=== PATIENT | male | born 1980 | race Caucasian/White ===

== ENCOUNTER 2022-11-06 09:33 | Emergency (ER) | payer MEDICAID ==
[~2022-11-06] VITALS: Ht 177.8 cm; Wt 77.0 kg
[~2022-11-06 09:33] MED LIST: ATOR10TA PO; CARV3.12 PO; FURO40TA4 PO; LACT10SO3 PO; METR-159 PO; PANT40TA54 PO; SPIR25TA PO
[2022-11-06 09:35] VITALS: TEMP 98.7
[2022-11-06] MEDS ORDERED: LACT10SO88 PO (10:43)
[2022-11-06 10:46] VITALS: BP 93/60; PULSE 91; RESP 14; O2SAT 99
== END 2022-11-06 17:59 | disposition home or self-care (01) ==
LOC: ER 09:34 → EDBD 09:34 → ER 17:59
DX: Z00.00 Encounter for general adult medical examination without abnormal findings (principal); Z79.899 Other long term (current) drug therapy
CPT/HCPCS: 99281

== ENCOUNTER 2022-11-27 16:19 | Emergency (ER) | payer SELFPAY ==
[~2022-11-27] VITALS: Ht 177.8 cm; Wt 80.0 kg
[~2022-11-27 16:19] MED LIST changes: -FURO40TA4 PO; +LACT10SO88 PO; -METR-159 PO
[2022-11-27 16:20] VITALS: BP 105/65; PULSE 106; RESP 16; TEMP 97.7; O2SAT 99
== END 2022-11-27 18:13 | disposition left against medical advice (07) ==
LOC: ER 16:19
DX: Z76.0 Encounter for issue of repeat prescription (principal); Z53.21 Procedure and treatment not carried out due to patient leaving prior to being seen by health care provider
CPT/HCPCS: 99281

== ENCOUNTER 2024-12-15 13:23 | Inpatient (IN) | payer SELFPAY ==
[~2024-12-15] VITALS: Ht 180.3 cm; Wt 86.3 kg
[2024-12-15] VITALS (9 sets, daily range): BP systolic 112–127; BP diastolic 62–74; PULSE 90–102; RESP 13–17; TEMP 98.2–99.2; O2SAT 95–96
[~2024-12-15 13:23] MED LIST changes: +LACT-373 PO; +LACT-383 PO; -LACT10SO3 PO; -LACT10SO88 PO
[2024-12-15] MEDS: ondansetron 4mg rapidly disintigrating tab PO ONE (14:14)
[2024-12-15 14:19] LABS: MEAN PLATELET VOLUME 9.0 FL (7.4-10.4); RED CELL DISTRIBUTION WIDTH 23.5 % (11.5-14.5)
[2024-12-15 14:44] LABS: CREATININE 0.70 MG/DL (0.60-1.10); TOTAL CARBON DIOXIDE 25.6 MMOL/L (24-32); eCRCL 145 ML/MIN; eGFR > 90 ML/MIN
[2024-12-15 15:16] LABS: PLATELET ESTIMATE DECREASED
--- NOTE | 2024-12-15 16:29 | Physician Documentation ---
History of Present Illness General Chief Complaint: Bloody Emesis Stated Complaint: VOMITING BLOOD Time Seen by MD: 16:27 OK to notify your PCP?: No Primary Medical Doctor: NONE Source: patient, RN notes reviewed Mode of Arrival: Ambulatory Exam Limitations: no limitations History of Present Illness Initial Comments 44-year-old male, with a history of GI bleeding due to ulcers and heavy alcohol consumption, presents complaining of episodes of vomiting blood today, at 0400 and 1000. He also describes black diarrhea this morning. The patient notes that over the last 1-1.5 weeks he has generally he fell very ill, mostly with generalized weakness, fatigue, and nasal/chest congestion. He denies abdominal pain, shortness of breath, or fever. He denies known history of esophageal darius ices. Triage reports patient's last alcoholic drink was two days ago, however patient reports to me that he last drank a couple of weeks ago. Medication Reconciliation Allergies: Coded Allergies: No Known Allergies (Unverified , 11/27/22) Scheduled Atorvastatin Calcium (Lipitor), 1 TAB PO DAILY Carvedilol (Coreg), 2 TAB PO BID Lactulose (Lactulose), 30 ML PO Q12H Pantoprazole Sodium (Pantoprazole Sodium), 40 MG PO BKF Spironolactone (Aldactone), 4 TAB PO DAILY Discontinued Medications Lactulose (Lactulose), 15 ML PO DAILY Discontinued Reason: patient no longer taking Past Medical History Past Medical History: *GI/HEPATOBILIARY*, GI Bleed Alcohol Use: Heavy Review of Systems All Other Systems at this time: Reviewed and Negative ROS As stated above in the HPI, otherwise all systems are reviewed and negative. Physical Exam Physical Exam Vital Signs: RN Vital Signs have been reviewed: Yes, Temperature: 98.5, Source: Temporal, Heart Rate: 99, Respiratory Rate: 18, BP: 130/80, Pulse Oximetry: 96, Weight: 90.400 Oxygen Flow Rate: 0 Pulse Oximetry Reflects: adequate oxygenation Physical Exam VITALS: Reviewed and as above. GENERAL: Alert, no apparent distress. Chronically ill appearing. HEENT: Icteric sclera. Normocephalic, atraumatic, PERRL, EOMI, dry mucosa, no erythema RESPIRATORY: Lungs clear, normal breath sounds, no respiratory distress. CHEST: No accessory muscle use, no retractions CV: Regular rate, rhythm, no edema, no murmur, No: JVD GI: Soft, non-tender, bowels sounds present, no rebound, guarding, or rigidity MUSCULOSKELETAL No deformities, no edema SKIN: Warm and dry, no rash NEURO: Oriented x4, No motor or sensory deficit PSYCH: Normal mood and affect, no agitation Progress Progress Note 1656: Case discussed with Dr. Velasquez, GI, who agrees to consult. 1750: Patient had an episode of vomiting, which appears to contain blood. 1758: Hospitalist paged. Results/Orders Reviewed/noted all lab results: Yes Results/Orders Orders - FRIDA NETTLES MD Urinalysis, Cult If Indicated (12/15/24 13:35) Transfusion Informed Consent (12/15/24 16:44) Normal Saline 100ml... W/Octreotide Inj. (12/15/24 16:45) Transfusion Informed Consent (12/15/24 17:55) Page Hospitalist (12/15/24 17:58) Completed Orders - FRIDA NETTLES MD Cbc/Diff (12/15/24 13:35) Lipase (12/15/24 13:35) CMP (12/15/24 13:35) Plt Lvds Bm (12/15/24 16:44) Octreotide Inj. (Sandostatin Inj.) (12/15/24 16:45) Type And Screen (12/15/24 16:44) Lrpc - Active Bleeding (12/15/24 17:55) Ondansetron Inj. (Zofran 4mg/2ml Vial) (12/15/24 18:00) Pantoprazole 40mg Iv (Protonix 40mg Iv) (12/15/24 16:40) Pantoprazole 40mg/Ns 100ml Bag (Protonix (12/15/24 16:40) Pantoprazole 40mg Iv (Protonix 40mg Iv) (12/15/24 18:10) Vital Signs 12/15/24 12/15/24 12/15/24 12/15/24 13:33 16:22 18:10 18:27 Temp 98.5 99.2 98.4 Pulse 118 99 98 95 Resp 18 18 15 17 B/P (MAP) 123/79 130/80 (97) 113/62 121/74 Pulse Ox 97 96 O2 Flow Rate 0 12/15/24 12/15/24 12/15/24 18:49 19:25 19:34 Temp 99.1 99.1 Pulse 97 90 Resp 15 16 14 B/P (MAP) 113/65 113/65 Laboratory Tests Test 12/15/24 13:56 White Blood Count 3.2 L Red Blood Count 3.25 L Hemoglobin 9.9 L Hematocrit 29.7 L Mean Corpuscular Volume 91.2 Mean Corpuscular Hemoglobin 30.6 Mean Corpuscular Hemoglobin Concent 33.5 Red Cell Distribution Width 23.5 H Platelet Count 28 *L Mean Platelet Volume 9.0 Neutrophils (%) (Auto) 56.9 Lymphocytes (%) (Auto) 30.6 Monocytes (%) (Auto) 11.1 Eosinophils (%) (Auto) 0.2 Basophils (%) (Auto) 1.2 H Neutrophils # (Auto) 1.8 Lymphocytes # (Auto) 1.0 L Monocytes # (Auto) 0.4 Eosinophils # (Auto) 0.0 Basophils # (Auto) 0.0 CBC Comment Platelet Estimate Decreased Red Blood Cell Morphology Perf Poikilocytosis Few Basophilic Stippling Anisocytosis 3+ Microcytosis 1+ Prothrombin Time 20.4 H INR International Normalized Ratio 2.1 Activated Partial Thromboplast Time 36 H Coagulation Comments Sodium Level 139 Potassium Level 4.0 Chloride Level 104 Carbon Dioxide Level 25.6 Anion Gap 9 Blood Urea Nitrogen 12 Creatinine 0.70 Estimated GFR/1.73 m2 > 90 BUN/Creatinine Ratio 17.1 Glucose Level 111 H Calcium Level 7.4 L Total Bilirubin 5.7 H Aspartate Amino Transf (AST/SGOT) 85 H Alanine Aminotransferase (ALT/SGPT) 29 Alkaline Phosphatase 112 Total Protein 6.4 Albumin 2.7 L Globulin 3.7 Albumin/Globulin Ratio 0.7 L Lipase 25 Chemistry Comments Medical Decision Making Additional information obtaine: old records Findings Patient presented to the emergency room with GI bleed. Protonix and octreotide has been initiated. Noted anemia along with low platelets and both of these has been ordered and GI has been consulted. Differential Diagnosis Upper GI bleed, lower GI bleed, anemia, ulcer, variceal bleed Departure Time of Disposition: 17:58 Disposition: 09 ADMITTED INPATIENT Admitted to Inpatient Unit: yes, to hospitalist Impression: Primary Impression: Upper GI bleed Additional Impression: Thrombocytopenia Condition: Guarded Education Educated: Patient Educated regarding: diagnosis, treatment Critical Care Note Total Time (mins): 45 Critical Care Note The very real possibility of a deterioration of this patient's condition required the highest level of my preparedness for sudden, emergent intervention. I provided critical care services, which included medication orders, frequent reevaluations of the patient's condition and response to treatment, ordering and reviewing test results, and discussing the case with various consultants. Excludes time spent performing separately billable procedures. The critical care time associated with the care of the patient was 45 minutes not counting procedures Additional Comment Additional Comment The patient presented with a reported upper GI bleed patient has a history of varices and significant bleed in the past, the patient was hemodynamically stable the patient was given platelets as he is thrombocytopenic he was also tra nsfused 1 unit of PRBCs while I was caring for the patient, the case has been discussed with the GI doctor Dr. Salguero the patient was started on a Protonix drips as well as an octreotide drip. The the patient's prior hospitalizations were reviewed. The patient will be admitted to the hospitalist. 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 12/15/24 16:46 Attestation: The note accurately reflects work and decisions made by me.Roddy Bill MD 12/15/24 19:52 FRIDA NETTLES MD Dec 15, 2024 16:29 FREDI CLINTON Dec 15, 2024 16:49 RODDY BILL MD Dec 15, 2024 19:52
[2024-12-15] MEDS: pantoprazole 40mg IV 80 MG in normal saline 100ml IV soln 100 ML IV ONE (16:40)
[2024-12-15] MEDS: octreotide inj. 500 MCG in normal saline 100ml IV soln 97.5 ML IV SCH (17:35)
[2024-12-15] MEDS: octreotide 100mcg/1 ml ampule IV ONE (17:35)
[2024-12-15 17:47] LABS: APTT 36 SECONDS (22-32); INR 2.1 INR
[2024-12-15] MEDS: ondansetron/PF 4mg/2ml inj IV ONE (18:14)
[2024-12-15] MEDS: pantoprazole 40MG/NS 100ML BAG 100 ML IV ONE ×2 (18:46→23:17)
[2024-12-15] MEDS ORDERED: potassium Cl 20 mEq SR tablet PO PRN ×2 (20:10)
[2024-12-15] MEDS ORDERED: magnesium hydroxide 30ml (MOM) UD suspension PO PRN (20:10)
[2024-12-15] MEDS ORDERED: potassium Cl 40MEQ/1/2NS 520ml 520 ML IV PRN (20:10)
[2024-12-15] MEDS ORDERED: magnesium sulf-water 4G/100mL 100 ML IV PRN (20:10)
[2024-12-15] MEDS ORDERED: mag hydrox/Alum hydrox/simeth 30ml oral suspension PO PRN (20:10)
[2024-12-15] MEDS ORDERED: ondansetron/PF 4mg/2ml inj IV PRN (20:10)
[2024-12-15] MEDS ORDERED: magnesium sulf-water 2g/50mL 50 ML IV PRN (20:10)
--- NOTE | 2024-12-15 20:53 | HISTORY AND PHYSICAL-Residence ---
History & Physical Providers to CC Resident Creating Document: ERVIN TAYLOR, SONI ~ History of Present Illness Primary Medical Doctor: NONE Reason for Admit\Complaint: Variceal bleed History of Present Illness This is a 44-year-old male with a history of cirrhosis of liver, hepatic mass, esophageal varices, came to the ER with a chief complaint of hematemesis and melena which started this morning. The patient reported that for the last two weeks he has been sick with the flu, weakness, body aches, today morning at 4:00 a.m. he had one episode of hematemesis, followed by another episode at 10:00 a.m., another one in the ER, total 3 episodes. He also had one episode of dark black loose stools this morning. Also reports mild abdominal pain in the epigastric region which also started today. Currently he reports that he has nausea and abdominal pain has improved. Course in the ER: Hemoglobin is 9.9, platelet count is 28. Received 1 unit of platelets. Has been initiated on Protonix and octreotide drip. Has two large- bore IV lines. ER physician consulted Dr. Salguero. 2022 admission He was admitted here in the hospital in 2022 for hematemesis and respiratory arrest. Was intubated and ventilated. His hemoglobin was 3 at that admission. Had an endoscopy which revealed grade 2 esophageal varices, four bands were applied. Also had ascites, paracentesis was done. CT abdomen showed micronodular cirrhosis of liver, 5.5 cm mass in the right hepatic lobe, concerning for malignancy. He got tested for hepatitis-B& C during the previous admission, was negative Post discharge-patient did not follow up with any ice [employer] or health plan advisor, no further evaluation of the hepatic mass was done. Reports that he has been taking all his medications regularly. He could not take lactulose regularly because of his work but reports he had one bowel movement every day. Did not have any other episode of hematemesis or melena since discharge until now. Alcohol history-has been drinking since the age of 16 years, reports that post discharge in 2022 he quit drinking for about one and half year and then again he relapsed, initially started with heavy alcohol, vodka about 6-7 shots a day and then transitioned to beer. He says that his last drink was about one week ago, the triage reports that last alcohol drink was two days ago. He gets withdrawal for about one day denies any history of alcohol withdrawal seizures. Allergies: Coded Allergies: No Known Allergies (Unverified , 11/27/22) Home Medications Home Medications Active Lactulose 10 Gram/15 Ml (15 Ml) Solution 15 Ml PO DAILY 30 Days Lipitor (Atorvastatin Calcium) 10 Mg Tablet 1 Tab PO DAILY 30 Days Lactulose 10 Gram/15 Ml Solution 30 Ml PO Q12H Aldactone (Spironolactone) 25 Mg Tablet 4 Tab PO DAILY 30 Days Coreg (Carvedilol) 3.125 Mg Tablet 2 Tab PO BID 30 Days Pantoprazole Sodium 40 Mg Tablet.dr 40 Mg PO BKF Past Medical History Past Medical History Cirrhosis of liver Hepatic mass Esophageal varices History of ascites Past Surgical History Surgical History Comment EGD s/p esophageal placed in 10/17 Paracentesis for ascites was done in 10/17 Family History Family History: Patient reports no known family medical history. Past Social History Social History Comment Smoking-started smoking at the age of 16 years, previously smoked about a pack a day, recently has been smoking but one pack in 2-3 days Alcohol- has been drinking since the age of 16 years, reports that post discharge in 2022 he quit drinking for about one and half year and then again he relapsed, initially started with heavy alcohol, vodka about 6-7 shots a day and then transitioned to beer. He says that his last drink was about one week ago, the triage reports that last alcohol drink was two days ago. Other drugs-used cocaine, methamphetamine, marijuana about 20 years ago, never used IV drugs Currently he is living alone. Works in the [employer] Primary care [facility] Alcohol Use: Heavy ROS All Other Systems: Reviewed and Negative Constitutional: Reports: weakness Eyes: Denies: no symptoms reported, see HPI, pain, discharge, blurred vision, double vision, itching, photophobia, redness, tearing, other ENT: Denies: no symptoms reported, see HPI, ear pain, ear bleeding, ear discharge, hearing loss, ear ringing, nose pain, nose bleeding, nose congestion, nose discharge, throat pain, throat swelling, voice change, mouth pain, mouth bleeding, mouth swelling, other Respiratory: Denies: no symptoms reported, see HPI, cough, orthopnea, shortness of breath, SOB with exertion, SOB at rest, stridor, wheezing, hemoptysis, pain with breathing, other Cardiovascular: Denies: no symptoms reported, see HPI, chest pain, left arm pain, diaphoresis, lightheadedness, syncope, edema, palpitations, irregular heart rate, other Gastrointestinal: Reports: abdominal pain, vomiting, melena, hematemesis Genitourinary: Denies: no symptoms reported, see HPI, burning, discharge, dysuria, frequency, flank pain, hematuria, incontinence, pain, decreased urine output, urgency, other Neurological: Denies: no symptoms reported, see HPI, speech problem, headache, dizziness, fainting, tingling, left sided numbness, right sided numbness, left sided weakness, right sided weakness, problems walking, unable to move lower ext, unable to move upper ext, petit mal seizures, tonic-clonic seizures, cognitive dysfunction, other Musculoskeletal: Denies: no symptoms reported, see HPI, pain, swelling, back pain, gout, joint pain, joint swelling, muscle pain, muscle swelling, muscle stiffness, neck pain, other Exam Vitals: Vital Signs Date Time Temp Pulse Resp B/P (MAP) Pulse Ox O2 Delivery O2 Flow Rate FiO2 12/15/24 19:53 98.7 97 15 112/67 (82) 97 0 General: General: Adult male, obese, not in apparent distress Head: Normocephalic with an atraumatic Eyes: Pupils- 3mm, reacting to light, conjunctiva- slightly pale, nonicteric Nose and throat: No polyps, septum- normal, no mucosal ulcers Neck: Supple, no lymphadenopathy, no carotid bruit Respiratory: no use of accessory muscles of respiration, Bilateral normal vesiscular breath sounds heard. Cardiac: S1-S2 heard, rythm regular, no gallop/murmur Abdomen: Mild tenderness in the epigastric region, soft, nondistended, hepatomegaly appreciated, bowel sounds normal, no guarding, no rigidity Extremities: no clubbing, no edema, no deformities, peripheral pulses- 2+ Skin: warm and dry, no rash, no purpura, no telangiectasia noted Neuro: Gross cranial nerve examination normal, no focal motor/sensory deficit, no flapping tremors, no tremors on extension Diagnostic Data Last Recorded Lab Results: 12/16/24 0612 12/16/24 0612 Diagnostic Data: Laboratory Tests Test 10/21/25 13:56 Prothrombin Time 20.4 SECONDS (9.0-12.0) H INR International Normalized Ratio 2.1 INR Activated Partial Thromboplast Time 36 SECONDS (22-32) H Coagulation Comments Advance Care Planning Advanced Care plannin - 30 Minutes (I spent 17 minutes in discussing various resuscitative measures, the patient chose to be full code.) Additional Plan Assessment This is a 44-year-old male with a history of cirrhosis of liver, hepatic mass, esophageal varices s/p banding in 2022 came to the ER with a chief complaint of hematemesis and melena. Patient is being admitted for alcohol induced cirrhosis of liver, variceal bleed. Plan Upper GI bleed Acute variceal bleeding Acute Blood loss anemia Patient had about three episodes of hematemesis and one episode of melena. History of stage II esophageal varices, s/p four bands in 10/17 Variceal bleed exacerbated by thrombocytopenia and elevated INR. Hemoglobin 9.9, H&H q.6 Platelet count 28, received 1 unit of blood transfusion Patient has two large-bore IV lines Received Protonix loading dose followed by Protonix drip On octreotide drip On IV fluids NS@ 100 mL/hour. NPO for possible EGD tomorrow. Patient would need beta alexandra at the time of discharge for variceal prophylaxis Thrombocytopenia secondary to chronic liver failure vs splenomegaly Platelet count 28, received [address] abdomen showed findings of splenomegaly. Decompensated liver cirrhosis Child Nye Clas C, score 11 MELD Na Score-22, 7-10% 90 day mortality Coagulopathy, thrombocytopenia, hypoalbuminemia, hyperbilirubinemia COL is likely secondary to alcohol use, hepatic panel done in the previous visit was negative Total bilirubin 5.7, AST/ALT 85/29=3, likely secondary to alcohol use INR 2.5, albumin 2.7 No signs of ascites. Patient previously had ascites s/p paracentesis in [address] abdomen showed cirrhotic liver with nodular contour, enlarged spleen, gastroesophageal varices No hepatic mass was reported in the CT abdomen done today, CT done in 2022 showed 5.5 cm hypoattenuating lesion in right hepatic lobe, concerning for malignancy. AFP 6.6 in 2022 Patient did not have a follow up with the health plan advisor, did not have any biopsy done. Spontaneous left Splenorenal shunt CT abdomen shows splenorenal shunt but patient is not aware if he had this procedure done in the past. Possibly the splenorenal shunt developed spontaneously which might occurred as a compensatory response to portal hypotension Mild Encephalopathy, alcohol vs hepatic Ammonia levels ordered Alcohol level, U tox screen ordered Currently NPO Start lactulose daily after EGD. 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 Previous echo in 2022 showed inferior apex and apical septum hypokinetic, overall normal systolic function, 65-70% Repeat echo ordered Alcohol withdrawal CIWA score-6 Placed on moderate alcohol withdrawal protocol IV Thiamine, folic acid, multivitamins Social service consult requested Code status: Full code DVT prophylaxis: None GI prophylaxis: Protonix Diet: NPO Status: Guarded Ervin Taylor M.D PGY2 Date of Service: Dec 15, 2024 Billing Provider: CHIP ARAIZA MD Addendum Attestation I agree with the residents assessment and plan as below: 44 year old with liver cirrhosis admitted with hematemsis and dana. Plan: PPI and octreotide infusion NPO ETOH withdrawal protocol GI consult CCT 56 min using HIPPA compliant A/V technology ERVIN TAYLOR, RES Dec 15, 2024 20:53 CHIP ARAIZA MD Dec 16, 2024 12:33
--- NOTE | 2024-12-15 21:17 | RADIOLOGY REPORT ---
CLINICAL HISTORY: Esophageal varices, to assess the progression of hepatic mass TECHNIQUE: CT of the abdomen and pelvis was performed without IV contrast. This exam was performed according to our departmental dose optimization program. Up-to-date CT equipment and radiation dose reduction techniques are utilized as appropriate. CTDI 41.8 DLP 1074 COMPARISON: US ULTRASOUND OF ABDOMEN on DOS: 10/25/22, CT CT CHEST ABDOMEN PELVIS on DOS: 10/18/22 FINDINGS: Abdomen/Pelvis: The kidneys, adrenal glands, pancreas, bladder, and prostate gland are unremarkable. There is a small gallstone with mild gallbladder wall thickening. Liver is cirrhotic in morphology with nodular contour. There are gastroesophageal varices. The spleen is enlarged, measuring 17.2 cm. There is a left splenorenal shunt. The abdominal aorta is normal in course and caliber. There are no significant atherosclerotic calcifications. There is no free intraperitoneal air. There is trace scattered ascites. There is no enlarged abdominal pelvic lymph node. There is no bowel wall thickening or dilatation. The appendix is normal. Other: The imaged lower thorax demonstrates minimal atelectatic changes at the right lung base. No acute osseous abnormality is evident. Impression: Cirrhosis with moderate to significant splenomegaly , gastroesophageal varices, and trace ascites. If this concern for a hepatic mass, multiphase CT or MRI is recommended. Small gallstone with mild gallbladder wall thickening.
[2024-12-15] MEDS ORDERED: haloperidol lactate 5mg/ml inj IM PRN (22:20)
[2024-12-15] MEDS: normal saline 1000ml 1,000 ML IV SCH (22:45)
[2024-12-15 23:02] LABS: MEAN PLATELET VOLUME 8.7 FL (7.4-10.4); RED CELL DISTRIBUTION WIDTH 22.5 % (11.5-14.5)
[2024-12-16] VITALS (9 sets, daily range): BP systolic 104–142; BP diastolic 56–81; PULSE 79–100; RESP 10–18; TEMP 98.1–99.1; O2SAT 94–100
[2024-12-16] MEDS: pantoprazole 40MG/NS 100ML BAG 100 ML IV SCH (00:09)
[2024-12-16] MEDS: thiamine 100mg/ml 2ml inj. IV SCH (00:10)
[2024-12-16 01:59] LABS: LACTIC SEPSIS 3.6 MMOL/L (0.4-2.0)
[2024-12-16 02:04] LABS: ETHANOL 28 MG/DL (<10); LACTATE DEHYDROGENASE 239 U/L (85-227); PRO BRAIN NATRIURETIC PEPTIDE < 30 PG/ML (0-125)
[2024-12-16] MEDS: pantoprazole 40MG/NS 100ML BAG 100 ML IV ONE (06:05)
[2024-12-16 06:42] LABS: MEAN PLATELET VOLUME 9.0 FL (7.4-10.4); RED CELL DISTRIBUTION WIDTH 22.6 % (11.5-14.5)
[2024-12-16 06:50] LABS: APTT 36 SECONDS (22-32); INR 2.0 INR
[2024-12-16 07:04] LABS: CREATININE 0.81 MG/DL (0.60-1.10); LDL CHOLESTEROL 39 MG/DL (50-100); TOTAL CARBON DIOXIDE 26.1 MMOL/L (24-32); eCRCL 125 ML/MIN; eGFR > 90 ML/MIN
[2024-12-16 07:25] LABS: CHOL/HDL RATIO 2.6 (0.00-4.99); PHOSPHORUS 2.8 MG/DL (2.3-4.5)
[2024-12-16 07:38] LABS: LEUKOCYTE ESTERASE ,URINE NEGATIVE (Neg); NITRITES, URINE NEGATIVE (Neg); OCCULT BLOOD,URINE NEGATIVE (Neg)
[2024-12-16 07:45] LABS: UA COLLECTION TYPE NON-SPECIFIED
[2024-12-16 07:54] LABS: URINE AMPHETAMINE SCREEN NEGATIVE (Neg); URINE BARBITUATE SCREEN NEGATIVE (Neg); URINE BENZODIAZEPINES SCREEN NEGATIVE (Neg); URINE CANNABINOID SCREEN NEGATIVE (Neg); URINE COCAINE SCREEN NEGATIVE (Neg); URINE METHADONE SCREEN NEGATIVE (Neg); URINE OPIATE SCREEN NEGATIVE (Neg); URINE PHENCYCLIDINE SCREEN NEGATIVE (Neg)
[2024-12-16 07:55] LABS: BASOPHILS % (MANUAL) 1.0 % (0-1); EOSINOPHILS % (MANUAL) 1.0 % (0-6); LYMPHOCYTES % (MANUAL) 34.0 % (21-51); MONOCYTES % (MANUAL) 8.0 % (2-12); NEUTROPHILS % (MANUAL) 56.0 % (42-75); PLATELET ESTIMATE DECREASED
[2024-12-16] MEDS: lactulose 20gm/30ml cup PO SCH ×2 (08:00→13:06)
[2024-12-16] MEDS: docusate sod 100mg capsule PO SCH (08:00)
[2024-12-16] MEDS: K and/or MAG REPLACEMENT MC SCH (08:00)
[2024-12-16] MEDS: multivitamins, therapeutics tablet PO SCH (08:00)
--- NOTE | 2024-12-16 08:50 | CONSULTATION REPORT - RESIDENT ---
Consult Providers to CC Resident Creating Document: ADDY GREGORIO RES History of Present Illness Reason for Admit\Complaint: Hematemesis History of Present Illness This is a 44-year-old male with a history of alcohol use disorder, previous history of variceal bleed status post band ligation, alcohol-induced cirrhosis of the liver came to the ER complaining of hematemesis and melena. He has had 3 episodes of hematemesis, moderate amount of blood in the vomitus. And 1 episode of dana. Associated with mild abdominal pain, 3/10, epigastric region, nonradiating, dull aching. He also gives history of yellowish discoloration of conjunctiva and mild abdominal distention. He was treated in the ER with Protonix drip and octreotide drip. Controlled with Zofran. Past history of hematemesis with respiratory failure in 2022 with hemoglobin level of 3. Intubated and ventilated. Endoscopy done during the time revealed a grade 2 esophageal varices, 4 bands were applied. Also underwent paracentesis during this hospitalization. Patient did not follow up with the mobile service rv technician/hypo dipper. Does not have a primary care provider. But reports it was regular with his medications. Has continue to consume excessive amounts of alcohol, Last drink 2 days ago. Drinks 6-7 shots of vodka every day along with a few beer. CT abdomen showed cirrhotic liver with nodular contour, enlarged spleen, gastroesophageal varices No hepatic mass was reported in the CT abdomen done today, However. CT done in 2022 showed 5.5 cm hypoattenuating lesion in right hepatic lobe, concerning for malignancy. AFP 6.6 in 2022, No h/o weight loss. Patient did not have a follow up with the hypo dipper, did not have any biopsy done. Allergies: Coded Allergies: No Known Allergies (Unverified , 11/27/22) Home Medications Home Medications Active Lipitor (Atorvastatin Calcium) 10 Mg Tablet 1 Tab PO DAILY 30 Days Lactulose 10 Gram/15 Ml Solution 30 Ml PO Q12H Aldactone (Spironolactone) 25 Mg Tablet 4 Tab PO DAILY 30 Days Coreg (Carvedilol) 3.125 Mg Tablet 2 Tab PO BID 30 Days Pantoprazole Sodium 40 Mg Tablet.dr 40 Mg PO BKF Past Medical History Past Medical History Cirrhosis of liver Hepatic mass Esophageal varices History of ascites Alcohol use disorder Past Surgical History Surgical History Comment EGD s/p esophageal variceal ligation in 10/17 Paracentesis for ascites was done in 10/17 Family History Family History: Patient reports no known family medical history. Past Social History Social History Comment Smoking-started smoking at the age of 16 years, previously smoked about a pack a day, recently has been smoking but one pack in 2-3 days Alcohol- has been drinking since the age of 16 years, reports that post discharge in 2022 he quit drinking for about one and half year and then again he relapsed, initially started with heavy alcohol, vodka about 6-7 shots a day and then transitioned to beer. He says that his last drink was about one week ago, the triage reports that last alcohol drink was two days ago. Other drugs-used cocaine, methamphetamine, marijuana about 20 years ago, never used IV drugs Currently he is living alone. Works in the [employer] Primary care is [facility] Exam Vitals: Vital Signs Date Time Temp Pulse Resp B/P (MAP) Pulse Ox O2 Delivery O2 Flow Rate FiO2 12/16/24 06:00 90 12/16/24 05:50 Room Air 12/16/24 02:00 98.1 18 142/78 (99) 97 12/15/24 19:53 0 General: General: Adult male, obese, not in apparent distress Head: Normocephalic with an atraumatic Eyes: Pupils- 3mm, reacting to light, conjunctiva- slightly pale, icteric Nose and throat: No polyps, septum- normal, no mucosal ulcers Neck: Supple, no lymphadenopathy, no carotid bruit Respiratory: no use of accessory muscles of respiration, Bilateral normal vesiscular breath sounds heard. Cardiac: S1-S2 heard, rythm regular, no gallop/murmur Abdomen: Nontender soft, nondistended, hepatomegaly appreciated, bowel sounds normal, no guarding, no rigidity, Childers sign negative Extremities: no clubbing, no edema, no deformities, peripheral pulses- 2+ Skin: warm and dry, no rash, no purpura, no telangiectasia noted Neuro: Gross cranial nerve examination normal, no focal motor/sensory deficit, no flapping tremors, no tremors on extension Diagnostic Data Last Recorded Lab Results: 12/16/24 0612 12/16/24 06 Diagnostic Data: Laboratory Tests Test 12/16/24 06:12 Prothrombin Time 19.2 SECONDS (9.0-12.0) H INR International Normalized Ratio 2.0 INR Activated Partial Thromboplast Time 36 SECONDS (22-32) H Coagulation Comments Additional Plan Assessment This is a 44-year-old male with a history of cirrhosis of liver, esophageal varices s/p banding in 2022 came to the ER with a chief complaint of hematemesis and melena. Patient is being admitted for alcohol induced cirrhosis of liver recurrent upper GI bleed. The pattern of presentation is unlikely to be variceal bleeding. This could be secondary to peptic ulcer disease, portal hypertensive gastropathy, gastritis. Patient has remained hemodynamically stable. He has thrombocytopenia and coagulopathy could have contributed to the bleeding. Acute patient possibly has encephalopathy secondary to advanced liver disease as evidenced by some confusion upon admission and some elevation in ammonia level Child Nye Clas C, score 11 MELD Na Score-22, 7-10% 90 day mortality Coagulopathy, thrombocytopenia, hypoalbuminemia, hyperbilirubinemia, all secondary to advanced liver disease Plan Diagnostic endoscopy, if necessary therapeutic maneuvers during the endoscopy depending on the findings. Continue to monitor hemoglobin hematocrit and transfuse as necessary to maintain hemoglobin of 7 g. Avoid antiplatelets and anticoagulants in the meantime. Monitor vital signs. Monitor mental state. Monitor for any withdrawal symptoms. We will monitor LFTs particularly bilirubin level in order to decide if he is going through acute hepatic injury secondary to alcohol intake and would benefit from therapy with prednisolone for acute alcohol-induced hepatitis Code status: Full code DVT prophylaxis: None Diet: NPO, clear liquid diet after EDG, advance diet as tolerated. Addy Gregorio Internal Medicine, PGY1 [facility] Sepsis Screening Reassessment Date: Dec 16, 2024 Date of Service: Dec 16, 2024 Billing Provider: SHEYLA SANCHEZ MD, SHIVANI, RES Dec 16, 2024 08:50 SHEYLA SANCHEZ MD Dec 16, 2024 14:46
[2024-12-16] MEDS ORDERED: propofol 10mg/ml 20ml vial IV ONE (10:15)
[2024-12-16] MEDS: folic acid 1mg/0.2ml inj IV SCH (12:03)
[2024-12-16] MEDS: nicotine 21mg patch - 24 hr TD SCH (12:04)
[2024-12-16] MEDS ORDERED: SPIR25TA5 PO (12:49)
[2024-12-16] MEDS: magnesium Cl slow-release 64mg tablet PO PRN (13:06)
[2024-12-16 14:43] LABS: MEAN PLATELET VOLUME 8.6 FL (7.4-10.4); RED CELL DISTRIBUTION WIDTH 22.7 % (11.5-14.5)
--- NOTE | 2024-12-16 18:35 | CARDIOLOGY REPORT ---
APPROVED REPORT EXAM: Comprehensive 2D, Doppler, and color-flow Echocardiogram. 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 3.04 cm IVC 17.20 mm FS (%) 34.6 % SV 80.2 ml CO 6.7 L/min M-Mode Dimensions Left Atrium(MM) 4.70 (2.5-4.0cm) Aortic Root 2.84 (2.2-3.7cm) Aortic Cusp Exc 2.22 (1.5-2.0cm) MV EPSS 1.4 (<0.5cm) Aortic Valve AoV Peak Stevie. 189.4 cm/s AoV VTI 37.2 cm AO Peak GR. 14.4 mmHg AO Mean GR. 6 mmHg LVOT VTI 26.47 cm LVOT Peak Stevie. 132.8 cm/s JACKIE(VTI)/BSA 2.14 cm2/m2 JACKIE (VTI) 2.14 cm2 AV DI 0.71 % Mitral Valve MV E Velocity 117.0 cm/s MV DECEL TIME 144 ms MV A Velocity 101.9 cm/s E/A Ratio 1.1 TDI Lateral E' P. V 14.25 cm/s E/Lateral E' 8.2 Tricuspid Valve TR P. Velocity 274 cm/s RAP ESTIMATE 10 mmHg TR Peak Gr. 30 mmHg RVSP 40 mmHg LEFT VENTRICLE Normal LV size and wall thickness. Overall systolic function is normal. LVEF is 65%. RIGHT VENTRICLE RV is normal size and function. Elevated right heart pressures with an RVSP of 40 mmHg. ATRIA Left atrium is mildly dilated. AORTIC VALVE Trileaflet AV appears mildly sclerotic without stenosis. No insufficiency. MITRAL VALVE Mild mitral annular calcification without stenosis. Trace regurgitation. TRICUSPID VALVE The tricuspid valve is normal in structure with mild regurgitation. PULMONIC VALVE Pulmonic valve is grossly normal in structure with physiologic insufficiency. GREAT VESSELS The aortic root is normal in size. The ascending aorta is normal in size. The IVC is normal in size and collapses >50% with inspiration. PERICARDIUM Normal pericardium. No effusion. Other Information Study Quality: Adequate Conclusion Normal LV size and wall thickness. Overall systolic function is normal. LVEF is 65%. RV is normal size and function. Elevated right heart pressures with an RVSP of 40 mmHg. Left atrium is mildly dilated. Trileaflet AV appears mildly sclerotic without stenosis. No insufficiency. Mild mitral annular calcification without stenosis. Trace regurgitation. The tricuspid valve is normal in structure with mild regurgitation. Normal pericardium. No effusion.
--- NOTE | 2024-12-16 18:42 | DISCHARGE SUMMARY ---
Discharge Summary Providers to CC ~ feel better today asking to be discharged home for emergency family reasons Discharge Summary Assessment Decompensated Liver cirrhosis secondary to alcohol abuse upper GI bleeding Pancytopenia Portal hypertension Esophageal varices, nonbleeding now Mild encephalopathy Alcoholism including ongoing Admission Diagnosis: Variceal bleed Admission Diagnosis Comment: Decompensated Liver cirrhosis secondary to alcohol abuse upper GI bleeding Pancytopenia Portal hypertension Esophageal varices, nonbleeding now Mild encephalopathy Alcoholism including ongoing Hospital Course DATE OF ADMISSION: December 15, 2024 DATE OF DISCHARGE: December 16, 2024 Discharge Diagnosis\Comment: Decompensated Liver cirrhosis secondary to alcohol abuse upper GI bleeding Pancytopenia Portal hypertension Esophageal varices, nonbleeding now Mild encephalopathy Alcoholism including ongoing Operations\Procedures: EGD Consultants: GI doctor Complications: Non Condition on DC: Stable Discharge Summary: This is a 44-year-old male with a history of cirrhosis of liver, hepatic mass, esophageal varices, came to the ER with a chief complaint of hematemesis and melena which started this morning. The patient reported that for the last two weeks he has been sick with the flu, weakness, body aches, today morning at 4:00 a.m. he had one episode of hematemesis, followed by another episode at 10:00 a.m., another one in the ER, total 3 episodes. He also had one episode of dark black loose stools this morning. Also reports mild abdominal pain in the epigastric region which also started today. Currently he reports that he has nausea and abdominal pain has improved. Course in the ER: Hemoglobin is 9.9, platelet count is 28. Received 1 unit of platelets. Has been initiated on Protonix and octreotide drip. Has two large-bore IV lines. ER physician consulted Dr. Salguero.2022 admissionHe was admitted here in the hospital in 2022 for hematemesis and respiratory arrest. Was intubated and ventilated. His hemoglobin was 3 at that admission. Had an endoscopy which revealed grade 2 esophageal varices, four bands were applied. Also had ascites, paracentesis was done. CT abdomen showed micronodular cirrhosis of liver, 5.5 cm mass in the right hepatic lobe, concerning for malignancy.He got tested for hepatitis-B& C during the previous admission, was negativePost discharge-patient did not follow up with any sales representative graphic art or clinical research nurse, no further evaluation of the hepatic mass was done. Reports that he has been taking all his medications regularly. He could not take lactulose regularly because of his work but reports he had one bowel movement every day. Did not have any other episode of hematemesis or melena since discharge until now.Alcohol history-has been drinking since the age of 16 years, reports that post discharge in 2022 he quit drinking for about one and half year and then again he relapsed, initially started with heavy alcohol, vodka about 6-7 shots a day and then transitioned to beer. He says that his last drink was about one week ago, the triage reports that last alcohol drink was two days ago. He gets withdrawal for about one day denies any history of alcohol withdrawal seizures. After admission patient was extensively evaluated treated including consulted by GI doctor, EGD was done, no signs of bleeding now, I explained to the patient the need for further evaluation and treatment, patient elected to be discharged for family emergency reasons, risk of severe complications and explained patient understood, he will be discharged in stable condition medication reconciled, follow-up PCP and GI doctor in two days, return to emergency department if condition changes, today on physical exam Vital signs, stable ,afebrile. Pulse Oximetry reflects adequate oxygenation. General: well developed, well nourished. Awake , alert, and oriented x4, resting comfortably in the bed, in no acute distress . Skin: Warm, dry, no pallor, no rash or petechiae. HEENT: Atraumatic, normocephalic, EOMI, anicteric sclera B; pink conjunctiva; PERRLA, normal oropharynx, moist oral and nasal mucosa. Tympanic membrane , nose , throat clear. Neck: Trachea midline. Supple, full range of motion, no JVD, bruit , hepatojugular reflex , lymphadenopathy or masses, or other lesions Cardiac: Regular rhythm, regular rate no murmurs, rubs, or gallops. Normal S1 and S2, no S3 noticed. PMI is normal. Respiratory: Equal breath sounds bilaterally, no tachypnea; lungs clear to auscultation bilaterally, no wheezing ,rub or rales, or crackles. Chest wall is symmetric and without deformity. No signs of trauma. Chest wall is nontender. No signs of respiratory distress. Resonance is normal upon percussion bilaterally. Gastrointestinal: Abdomen symmetric, non-distended, soft, non-tender, normal bowel sounds x4 quadrant, normoactive, no hepatosplenomegaly , no masses , no bruit, no flank pain bilaterally. No voluntary guarding, rebound, or rigidity. No tenderness to percussion. No pulsatile masses. Equal femoral pulses. No Childers's sign or McBurney point tenderness. Back; no CVA tenderness bilaterally, no deformities. Neck and back are without deformity as well. No tenderness noted on palpation of the spinous processes. Spinous processes are midline. Cervical, thoracic, and lumbar paraspinal muscles are not tender and are without spasm. : normal external genitalia, without lesions, swelling, masses or tenderness. Musculoskeletal: Extremities, normal range of motion, non-tender, muscle strength 5/5 x 4. Negative Homans signs bilaterally on lower extremity. Distal pulses full symmetrical, no clubbing, cyanosis , edema. Neurological: Speech is clear, alert, and oriented x 4. No motor or sensory deficit, deep tendon reflexes normal, cerebellar intact. Cranial nerves II-XII intact. Psych: Alert and or appropriate, normal affect. Vascular: Good distal pulses, which are equal x4; capillary refill less than 2 seconds. Lymphatic, no lymphadenopathy. *Problems/Diagnosis: (1) Severe anemia Status: Acute (2) Alcoholic cirrhosis Status: Acute (3) Thrombocytopenia Status: Acute (4) Anemia Status: Acute Total Time Spent on D/C: > 30 Minutes Date of Service: Dec 16, 2024 Billing Provider: CHARLIE SINGER MD Common Visit Codes: 04709-EXK/OBS DISCH DAY >30min CHARLIE SINGER MD Dec 16, 2024 18:42
--- NOTE | 2024-12-17 19:36 | PATHOLOGY REPORT ---
[facility] [address] [place] [address] SURGICAL PATHOLOGY REPORT CaseNumber: [id number] Surgeon:Janis Velasquez M.D. CLINICAL INFORMATION CLINICAL INFORMATION: Not provided. DIAGNOSIS DIAGNOSIS: STOMACH, ANTRUM; BIOPSY - MILD CHRONIC GASTRITIS. - NEGATIVE FOR INTESTINAL METAPLASIA. - POSITIVE FOR HELICOBACTER PYLORI. MICROSCOPIC DESCRIPTION MICROSCOPIC DESCRIPTION: A single H&E stained slide of the gastric antral biopsy is reviewed. Present is mild to moderate chronic gastritis with associated Helicobacter pylori infection but no intestinal metaplasia. The gastric mucosa is intact without erosion or ulceration. There is no increased number of intraepithelial lymphocytes or neutrophils. The lamina propria contains a slightly variable content of fibrous tissue which distorts the glandular architecture to a slight extent. An Alcian blue/PAS stain was performed. The control stains appropriately positive and negative. No intestinal metaplasia is identified. An immunoperoxidase stain was performed. The control stains appropriately positive and negative. The antibody utilized was to H. pylori. Present are a moderate number of positive staining organisms (H. pylori) which are found within the surface mucin and as well the crypts. (bb) GROSS DESCRIPTION GROSS DESCRIPTION: Received in a container of formalin labeled with the patient's name, number, and "antrum BX" is a 0.4 x 0.2 x 0.1 cm piece of inman tissue. The specimen is entirely submitted as A1. The time at which the specimen was removed was 1040. The time at which the specimen was placed in formalin was 1040. Electronically signed by: Holly Alex M.D. 12/17/2024 7:09:00 PM
== END 2024-12-16 17:09 | disposition home or self-care (01) | DRG 378 ==
LOC: ER 13:24 → ED HOLD 19:34 → PCU 3S 20:55
PROVIDERS: ADMIT Internal Medicine; ATTEND Family Medicine
PROC: 30233R1 Transfusion of Nonautologous Platelets into Peripheral Vein, Percutaneous Approach (ICD-10-PCS; 2024-12-15)
PROC: 30233N1 Transfusion of Nonautologous Red Blood Cells into Peripheral Vein, Percutaneous Approach (ICD-10-PCS; 2024-12-15)
PROC: 0DB78ZX Excision of Stomach, Pylorus, Via Natural or Artificial Opening Endoscopic, Diagnostic (ICD-10-PCS; principal; 2024-12-16 10:20)
DX: K29.71 Gastritis, unspecified, with bleeding (principal); D61.818 Other pancytopenia; D62 Acute posthemorrhagic anemia; G93.40 Encephalopathy, unspecified; K76.6 Portal hypertension; F10.139 Alcohol abuse with withdrawal, unspecified; K70.30 Alcoholic cirrhosis of liver without ascites; Z87.891 Personal history of nicotine dependence; R16.0 Hepatomegaly, not elsewhere classified; I85.10 Secondary esophageal varices without bleeding; Y90.1 Blood alcohol level of 20-39 mg/100 ml
CPT/HCPCS: 36415; 36430; 43239; 74176; 80053; 80061; 80305; 80320; 81003; 82140; 83036; 83605; 83615; 83690; 83735; 83880; 84100; 84132; 85007; 85008; 85025; 85027; 85610; 85730; 86885; 86900; 86901; 86920; 87040; 87081; 93306; 96365; 96375; 99291; A4618; G0378; J2354; J2405; J2470; J2704; J3411; J3490; J7030; J7040; P9016; P9035